=== PATIENT | male | born 1960 | race Caucasian/White ===

== ENCOUNTER 2019-01-18 14:38 | Emergency (ER) | payer OTHER ==
[~2019-01-18] VITALS: Ht 182.9 cm; Wt 110.0 kg
[2019-01-18] MEDS ORDERED: albuterol 2.5 MG/3 ML nebule NEB ONE (15:50)
[2019-01-18] MEDS ORDERED: methylPREDNISolone sod succ 125mg/2ml vial IV ONE (15:50)
[2019-01-18] MEDS ORDERED: normal saline 1000ml 1,000 ML IV ONE (15:50)
[2019-01-18 15:57] LABS: BASOPHILS # (AUTO) 0.1 X10'3 (0-0.2); BASOPHILS % (AUTO) 0.7 % (0-1); EOSINOPHILS % (AUTO) 0.4 % (0-6); HEMATOCRIT 44.1 % (42.0-52.0); HEMOGLOBIN 15.2 g/dl (14.0-17.9); LYMPHOCYTES # (AUTO) 1.5 X10'3 (1.1-4.8); LYMPHOCYTES % (AUTO) 17.8 % (21-51); MEAN CORPUSCULAR HEMOGLOBIN 35.2 PG (27.0-31.0); MEAN CORPUSCULAR HGB CONC 34.5 g/dL (33.0-36.5); MEAN CORPUSCULAR VOLUME 102.2 FL (78-98); MEAN PLATELET VOLUME 8.2 FL (7.4-10.4); MONOCYTES # (AUTO) 0.8 X10'3 (0-0.9); MONOCYTES % (AUTO) 9.7 % (2-12); NEUTROPHILS # (AUTO) 6.1 X10'3 (1.8-7.7); NEUTROPHILS % (AUTO) 71.4 % (42-75); PLATELET COUNT 138 X10'3 (140-440); RED BLOOD COUNT 4.31 X10'6 (4.70-6.10); RED CELL DISTRIBUTION WIDTH 12.5 % (11.5-14.5); WHITE BLOOD COUNT 8.6 X10'3 (4.5-11.0)
[2019-01-18 16:07] LABS: ALANINE AMINOTRANSFERASE 108 U/L (12-78); ALBUMIN 4.1 G/DL (3.4-5.0); ALBUMIN/GLOBULIN RATIO 1.1 (1.1-1.5); ALKALINE PHOSPHATASE 104 IU/L (46-116); ANION GAP 11 (8-16); ASPARTATE AMINO TRANSFERASE 70 U/L (10-37); BILIRUBIN,TOTAL 1.3 MG/DL (0.1-1.0); BLOOD UREA NITROGEN 11 MG/DL (7-18); BUN/CREATININE RATIO 11.6 (5.4-32.0); CALCIUM 9.8 MG/DL (8.5-10.1); CHLORIDE 98 MMOL/L (99-107); CREATININE 0.95 MG/DL (0.60-1.10); GLUCOSE 100 MG/DL (70-104); POTASSIUM 3.9 MMOL/L (3.5-5.1); SODIUM 133 MMOL/L (135-145); TOTAL CARBON DIOXIDE 24.1 MMOL/L (24-32); TOTAL PROTEIN 7.9 G/DL (6.4-8.2); eGFR 82 ML/MIN
[2019-01-18 16:12] LABS: PARTIAL THROMBOPLASTIN TIME 27 SECONDS (22-32)
[2019-01-18] MEDS ORDERED: PRED20TA PO (16:21)
[2019-01-18] MEDS ORDERED: DOXY100T2 PO (16:21)
[2019-01-18] MEDS ORDERED: ALBU18HF2 INH (16:21)
[2019-01-18 16:58] VITALS: BP 142/77
== END 2019-01-18 16:59 | disposition home or self-care (01) ==
LOC: ER 14:40
DX: J44.1 Chronic obstructive pulmonary disease with (acute) exacerbation (principal); J40 Bronchitis, not specified as acute or chronic; I48.91 Unspecified atrial fibrillation; I10 Essential (primary) hypertension; F12.90 Cannabis use, unspecified, uncomplicated; F17.210 Nicotine dependence, cigarettes, uncomplicated
CPT/HCPCS: 36415; 71046; 80053; 83605; 84484; 85025; 85610; 85730; 93005; 94640; 94760; 96374; 99284; J2930; J7030